=== PATIENT | male | born 1990 | race African-American/Black ===

== ENCOUNTER 2016-06-25 22:35 | Emergency (ER) | payer OTHER ==
[~2016-06-25] VITALS: Ht 165.1 cm; Wt 88.5 kg
[~2016-06-25 22:35] MED LIST: BACTRIM DS TAB1 EACH PO; IBUPROFEN600 M1 PO
[2016-06-25 23:09] VITALS: BP 131/84
--- NOTE | 2016-06-25 23:19 | ED UPPER/LOWER EXTREMITY COMPL ---
History of Present Illness General Chief Complaint: Skin Rash/ Abcess Stated Complaint: BUMP ON BACK OF LEFT LEG Source: patient Exam Limitations: no limitations Vital Signs & Intake/Output Vital Signs & Intake/Output Vital Signs Date Time Temp Pulse Resp B/P B/P Pulse O2 O2 Flow FiO2 Mean Ox Delivery Rate 06/25 2309 98.5 98 18 131/84 98 Room Air ED Intake and Output 06/26 0000 06/25 1200 Intake Total Output Total Balance Patient 195 lb Weight Allergies Coded Allergies: No Known Allergies (06/25/16) Reconcile Medications Cephalexin (Keflex) 500 MG CAPSULE 1 CAP PO 4XDP infection Ibuprofen 600 MG TABLET 1 TAB PO TID PRN pain with food Sulfamethoxazole/Trimethoprim (Bactrim Ds Tablet) 800 MG-160 MG TABLET 1 TAB PO BID infection Triage Note: PAINFUL LUMP ON LT BUTTOCK Triage Nurses Notes Reviewed? yes Onset: Gradual Duration: day(s): Timing: recent history Severity: moderate Pain/Injury Location: Left: Thigh. Method of Injury: "I have swelling and it's painful." Modifying Factors: Worsens With: other (worse w/palpation). Associated Symptoms: redness/swelling HPI: 25-year-old gentleman presents with area of swelling in the left lower gluteal region. He notes that it has been there for the past 1-2 days. It feels swollen and tender to him. He has no trouble with bowel movements. He has no fever chills nausea vomiting diarrhea. He is otherwise well. Past History Travel History Traveled to [place] past 21 day No Medical History Any Pertinent Medical History? see below for history Neurological: NONE EENT: NONE Cardiovascular: NONE Respiratory: NONE Gastrointestinal: NONE Hepatic: NONE Renal: NONE Musculoskeletal: NONE Psychiatric: NONE Endocrine: NONE Blood Disorders: NONE Cancer(s): NONE Surgical History Surgical History: none Psychosocial History What is your primary language Azeri Tobacco Use: Never used Family History Hx Contributory? No Review of Systems Review of Systems Constitutional: Reports: no symptoms. EENTM: Reports: no symptoms. Respiratory: Reports: no symptoms. Cardiovascular: Reports: no symptoms. Gastrointestinal/Abdominal: Reports: no symptoms. Genitourinary: Reports: no symptoms. Musculoskeletal: Reports: no symptoms. Skin: Reports: no symptoms. Neurological/Psychological: Reports: no symptoms. Hematologic/Endocrine: Reports: no symptoms. Immunological: Reports: no symptoms. All Other Systems: Reviewed and Negative Physical Exam Physical Exam General Appearance: well developed/nourished, mild distress Head: atraumatic Eyes: Bilateral: normal appearance. Ears, Nose, Throat: normal pharynx, normal ENT inspection, hearing grossly normal Neck: normal inspection, supple Cardiovascular/Respiratory: regular rate/rhythm Back: normal inspection Skin: intact, there is a 3 x 3 cm abscess in the perirectal area isn't near the proximal posterior thigh. It is tender to palpation and swollen and erythematous consistent with an abscess. Lymphatic: no anterior cervical destiny Progress Differential Diagnosis: abscess versus cellulitis versus other Plan of Care: Current Medications Sig/Vish Start time Last Medication Dose Stop Time Status Admin Cephalexin 500 MG ONCE ONE 06/25 2344 UNVr (Keflex) 06/25 2345 Ibuprofen 800 MG ONCE ONE 06/25 2344 UNVr (Motrin) 06/25 2345 Lidocaine 20 ML ONCE ONE 06/25 2344 UNVr (Lidocaine 1%) 06/25 2345 Trimethoprim/ 1 TAB ONCE ONE 06/25 2344 UNVr Sulfamethoxazole 06/25 2345 (Bactrim DS) Departure Departure Disposition: HOME OR SELF CARE Condition: Stable Clinical Impression Primary Impression: Abscess Referrals: PATIENT HAS NO PRIMARY CARE DR (PCP/Family) Departure Forms: Customer Survey General Discharge Information Prescriptions: Current Visit Scripts Sulfamethoxazole/Trimethoprim (Bactrim Ds Tablet) 1 TAB PO BID #20 TAB Ibuprofen 1 TAB PO TID PRN pain #30 TAB with food Cephalexin (Keflex) 1 CAP PO 4XDP #40 CAP Procedures Incision and Drainage Site: left perirectal area abscess 3 x 3 cm Blade Size: 11 I & D Procedure: Yes: betadine prep, sterile drapes applied, sterile dressing applied, wick placed. Progress: Excellent result. Wound was packed with gauze. Encouraged follow-up in 24 hours. Patient prescribed Keflex and Bactrim.
[2016-06-25] MEDS ORDERED: KEFLEX500 M1 PO (23:59)
== END 2016-06-26 00:24 ==
LOC: ERH 22:35
DX: K61.1 Rectal abscess (principal)

== ENCOUNTER 2016-06-27 20:25 | Emergency (ER) | payer OTHER ==
[~2016-06-27] VITALS: Ht 165.1 cm; Wt 93.0 kg
[~2016-06-27 20:25] MED LIST changes: +KEFLEX500 M1 PO
[2016-06-27 20:46] VITALS: BP 123/75
--- NOTE | 2016-06-27 20:47 | ED SKIN/ALLERGY COMPLAINT ---
History of Present Illness General Chief Complaint: Suture Removal/Wound Recheck Stated Complaint: WOUND CHECK Source: patient Exam Limitations: no limitations Vital Signs & Intake/Output Vital Signs & Intake/Output Vital Signs Date Time Temp Pulse Resp B/P B/P Pulse O2 O2 Flow FiO2 Mean Ox Delivery Rate 06/27 2045 97.9 77 20 123/75 97 Room Air Allergies Coded Allergies: No Known Allergies (06/27/16) Reconcile Medications Cephalexin (Keflex) 500 MG CAPSULE 1 CAP PO 4XDP infection Ibuprofen 600 MG TABLET 1 TAB PO TID PRN pain with food Sulfamethoxazole/Trimethoprim (Bactrim Ds Tablet) 800 MG-160 MG TABLET 1 TAB PO BID infection Triage Nurses Notes Reviewed? yes Onset: Gradual Duration: day(s): Timing: single episode today Severity: mild Location: none (follow), right upper hip, lower gluteal region Possible Factors: s/p i+d Modifying Factors: Worsens With: scratching. Associated Symptoms: abscess drained 2 days ago HPI: 25-year-old gentleman status post incision and drainage of a perirectal abscess 2 days ago. He states that the packing fell out yesterday. He has been taking antibiotics. There is no drainage pain tenderness. He states the swelling has decreased dramatically. He is feeling well. Past History Travel History Traveled to [place] past 21 day No Medical History Any Pertinent Medical History? 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 No Review of Systems Review of Systems Constitutional: Reports: no symptoms. EENTM: Reports: no symptoms. Respiratory: Reports: no symptoms. Cardiovascular: Reports: no symptoms. GI: Reports: no symptoms. Genitourinary: Reports: no symptoms. Musculoskeletal: Reports: no symptoms. Skin: Reports: no symptoms. Neurological/Psychological: Reports: no symptoms. Hematologic/Endocrine: Reports: no symptoms. Immunologic/Allergic: Reports: no symptoms. All Other Systems: Reviewed and Negative Physical Exam Physical Exam General Appearance: well developed/nourished, mild distress Head: atraumatic Eyes: Bilateral: PERRL, EOMI. Ears, Nose, Throat: normal pharynx, normal ENT inspection, hearing grossly normal Neck: normal inspection, supple Respiratory: normal breath sounds Cardiovascular: regular rate/rhythm Gastrointestinal: soft, non-tender Back: normal inspection Extremities: normal inspection, normal range of motion, no edema Neurologic/Psych: awake, alert, oriented x 3, normal mood/affect Skin: inferior gluteal cleft/right upper hip area is without drainage, tenderness. there is a 1cm area of nodularity. non tender to firm palpation. This patient is is 20 weeks ( . This she started g) Lymphatic: no anterior cervical destiny Progress Differential Diagnosis: abscess vs other. Plan of Care: well healing abscess.... no sign of infection. Departure Departure Disposition: HOME OR SELF CARE Condition: Stable Clinical Impression Primary Impression: Abscess Secondary Impressions: Wound check, abscess Referrals: PATIENT HAS NO PRIMARY CARE DR (PCP/Family) Departure Forms: Customer Survey General Discharge Information
== END 2016-06-27 21:24 ==
LOC: ERH 20:25
DX: Z48.01 Encounter for change or removal of surgical wound dressing (principal)
CPT/HCPCS: 99281